=== PATIENT | female | born 1985 | race Two or more races ===

== ENCOUNTER 2018-11-27 08:39 | Emergency (ER) | payer MEDICAID ==
[~2018-11-27] VITALS: Ht 144.8 cm; Wt 68.0 kg
[2018-11-27 09:25] LABS: CLARITY URINE CLOUDY (CLEAR); COLOR URINE YELLOW (YELLOW); KETONES URINE NEGATIVE (NEGATIVE); LEUKOCYTE ESTERASE URINE 2+ (NEGATIVE); NITRITE URINE NEGATIVE (NEGATIVE); OCCULT BLOOD URINE NEGATIVE (NEGATIVE); PH URINE 6.5 (4.5-8.0); PROTEIN URINE TRACE (NEGATIVE); SPECIFIC GRAVITY URINE 1.016 (1.005-1.030); UROBILINOGEN URINE 0.2 E.U./dL (0.2-1.0)
[2018-11-27 10:09] LABS: BASOPHILS % 0.2 % (0.0-2.0); EOSINOPHILS % 1.8 % (0.0-5.0); HEMATOCRIT. 33.4 % (36.0-48.0); HEMOGLOBIN. 11.5 g/dL (12.0-16.0); LYMPHOCYTES % 15.8 % (20.0-50.0); MEAN CORPUSCULAR HEMOGLOBIN 30.6 pg (28.0-32.0); MEAN CORPUSCULAR VOLUME 89.3 fL (81.0-99.0); MEAN PLATELET VOLUME 9.2 fl (7.4-10.4); MONOCYTES % 4.8 % (2.0-8.0); NEUTROPHILS % 77.4 % (40.0-76.0); PLATELET 272 x1000/uL (130-400); RED BLOOD CELL COUNT 3.74 mill/uL (4.2-5.4); RED CELL DISTRIBUTION WIDTH 13.6 % (11.6-14.6)
[2018-11-27 10:20] LABS: CHLORIDE 107 mEq/L (98-107)
[2018-11-27 11:11] LABS: B-HCG QUANTITATIVE 23941 mIU/mL (<3)
[2018-11-27] MEDS ORDERED: ACETAMINOPHEN 325MG TABLET PO ONE (11:30)
[2018-11-27 11:44] VITALS: BP 125/85
== END 2018-11-27 11:49 | disposition home or self-care (01) ==
LOC: ER 08:44
DX: O23.12 Infections of bladder in pregnancy, second trimester (principal); I10 Essential (primary) hypertension; Z3A.18 18 weeks gestation of pregnancy
CPT/HCPCS: 36415; 76805; 80048; 81003; 81025; 84702; 99284

== ENCOUNTER 2018-12-12 20:59 | Observation (INO) | payer MEDICAID ==
[~2018-12-12] VITALS: Ht 144.8 cm; Wt 68.0 kg
[2018-12-12] MEDS ORDERED: DEXT 5%/LACTATED RINGERS 1,000 ML IV STA (21:55)
[2018-12-12 22:23] LABS: CLARITY URINE CLEAR (CLEAR); COLOR URINE YELLOW (YELLOW); KETONES URINE NEGATIVE (NEGATIVE); LEUKOCYTE ESTERASE URINE 1+ (NEGATIVE); NITRITE URINE NEGATIVE (NEGATIVE); OCCULT BLOOD URINE 3+ (NEGATIVE); PROTEIN URINE NEGATIVE (NEGATIVE); SPECIFIC GRAVITY URINE 1.011 (1.005-1.030)
[2018-12-12 22:37] LABS: BASOPHILS % 0.2 % (0.0-2.0); EOSINOPHILS % 1.6 % (0.0-5.0); HEMATOCRIT. 27.7 % (36.0-48.0); HEMOGLOBIN. 9.7 g/dL (12.0-16.0); MEAN CORPUSCULAR HEMOGLOBIN 31.3 pg (28.0-32.0); MEAN CORPUSCULAR VOLUME 88.9 fL (81.0-99.0); MONOCYTES % 10.2 % (2.0-8.0); PLATELET 207 x1000/uL (130-400); RED BLOOD CELL COUNT 3.11 mill/uL (4.2-5.4); RED CELL DISTRIBUTION WIDTH 13.7 % (11.6-14.6)
[2018-12-12 22:44] LABS: *BENZODIAZEPINES SCREEN URINE NEGATIVE (NEGATIVE); *COCAINE SCREEN URINE NEGATIVE (NEGATIVE)
[2018-12-12 22:45] LABS: *BARBITURATES SCREEN URINE NEGATIVE (NEGATIVE); CANNABINOID URINE SCREEN NEGATIVE (NEGATIVE); METHADONE URINE SCREEN NEGATIVE (NEGATIVE); OPIATES URINE SCREEN NEGATIVE (NEGATIVE); PHENCYCLIDINE URINE SCREEN NEGATIVE (NEGATIVE)
[2018-12-12 22:46] LABS: *AMPHETAMINES SCREEN URINE NEGATIVE (NEGATIVE)
[2018-12-13] MEDS ORDERED: CEFAZOLIN 2,000 MG in DEXT 5% WATER 100 ML IV SCH ×2
[2018-12-13] MEDS ORDERED: PNV1TABL50 MT (01:15)
== END 2018-12-13 01:20 | disposition home or self-care (01) ==
LOC: 8 EST LDRP 20:59
PROVIDERS: ADMIT Obstetrics & Gynecology; ATTEND Obstetrics & Gynecology
DX: O26.852 Spotting complicating pregnancy, second trimester (principal); Z3A.20 20 weeks gestation of pregnancy
CPT/HCPCS: 36415; 76805; 80305; 81003; 85025; 96365; 99281; G0378; J0690; J7060; 96360; 96361

== ENCOUNTER 2018-12-26 19:13 | Observation (INO) | payer MEDICAID ==
[~2018-12-26] VITALS: Ht 144.8 cm; Wt 68.0 kg
[~2018-12-26 19:13] MED LIST: PNV1TABL50 MT
[2018-12-26 21:02] LABS: CLARITY URINE CLEAR (CLEAR); COLOR URINE YELLOW (YELLOW); KETONES URINE NEGATIVE (NEGATIVE); LEUKOCYTE ESTERASE URINE 2+ (NEGATIVE); NITRITE URINE NEGATIVE (NEGATIVE); OCCULT BLOOD URINE TRACE (NEGATIVE); PROTEIN URINE NEGATIVE (NEGATIVE); SPECIFIC GRAVITY URINE 1.004 (1.005-1.030)
[2018-12-26] MEDS ORDERED: LACTATED RINGERS 1,000 ML IV ONE (21:45)
[2018-12-26] MEDS ORDERED: CEFAZOLIN 2,000 MG in DEXT 5% WATER 100 ML IV SCH (21:45)
[2018-12-26] MEDS ORDERED: ACETAMINOPHEN 500MG TABLET PO SCH (23:30)
== END 2018-12-26 23:10 | disposition home or self-care (01) ==
LOC: 8 EST LDRP 19:13
PROVIDERS: ADMIT Obstetrics & Gynecology; ATTEND Obstetrics & Gynecology
DX: O26.892 Other specified pregnancy related conditions, second trimester (principal); R10.30 Lower abdominal pain, unspecified; M54.9 Dorsalgia, unspecified; R11.2 Nausea with vomiting, unspecified; Z3A.22 22 weeks gestation of pregnancy
CPT/HCPCS: 81003; 96365; 99281; G0378; J0690; J7060; 96360

== ENCOUNTER 2019-03-16 04:03 | Observation (INO) | payer MEDICAID ==
[~2019-03-16] VITALS: Ht 144.8 cm; Wt 69.4 kg
== END 2019-03-16 05:15 | disposition home or self-care (01) ==
LOC: 8 EST LDRP 04:03
PROVIDERS: ADMIT Obstetrics & Gynecology; ATTEND Obstetrics & Gynecology
DX: O36.8130 Decreased fetal movements, third trimester, not applicable or unspecified (principal); Z3A.35 35 weeks gestation of pregnancy
CPT/HCPCS: G0378

== ENCOUNTER 2019-03-16 15:20 | Observation (INO) | payer MEDICAID ==
[~2019-03-16] VITALS: Ht 144.8 cm; Wt 68.9 kg
[2019-03-16 16:07] LABS: CLARITY URINE CLEAR (CLEAR); COLOR URINE YELLOW (YELLOW); KETONES URINE NEGATIVE (NEGATIVE); LEUKOCYTE ESTERASE URINE 1+ (NEGATIVE); NITRITE URINE NEGATIVE (NEGATIVE); OCCULT BLOOD URINE NEGATIVE (NEGATIVE); PROTEIN URINE 1+ (NEGATIVE); SPECIFIC GRAVITY URINE 1.007 (1.005-1.030); UROBILINOGEN URINE 0.2 E.U./dL (0.2-1.0)
[2019-03-16] MEDS ORDERED: ACETAMINOPHEN 500MG TABLET PO NR (16:15)
[2019-03-16] MEDS ORDERED: LACTATED RINGERS 1,000 ML IV SCH (16:30)
[2019-03-16] MEDS ORDERED: CEFAZOLIN 2,000 MG in DEXT 5% WATER 100 ML IV NR (17:00)
== END 2019-03-16 17:10 | disposition home or self-care (01) ==
LOC: 8 EST LDRP 15:20
PROVIDERS: ADMIT Obstetrics & Gynecology; ATTEND Obstetrics & Gynecology
DX: O62.9 Abnormality of forces of labor, unspecified (principal); O26.893 Other specified pregnancy related conditions, third trimester; R10.9 Unspecified abdominal pain; M54.9 Dorsalgia, unspecified; R30.9 Painful micturition, unspecified; Z3A.35 35 weeks gestation of pregnancy
CPT/HCPCS: 81003; 96365; G0378; J0690; J7060; J7120

== ENCOUNTER 2019-03-18 12:29 | Inpatient (IN) | payer MEDICAID ==
[~2019-03-18] VITALS: Ht 144.8 cm; Wt 68.9 kg
[2019-03-18] MEDS ORDERED: ATEN100T PO (13:22)
[2019-03-18] MEDS ORDERED: LACTATED RINGERS 1,000 ML IV SCH (13:22)
[2019-03-18] MEDS ORDERED: LIDOCAINE HCL 1% 20ML VIAL (Pyxis) INJ INFIL PRN (13:30)
[2019-03-18] MEDS ORDERED: PENICILLIN G POTASSIUM 5 MMU in DEXT 5% WATER 100 ML IV NR (13:30)
[2019-03-18] MEDS ORDERED: CARBOPROST TROMETHAMINE 250 MCG/ML AMPUL IM PRN (13:30)
[2019-03-18] MEDS ORDERED: DEXT 5%/LR + PITOCIN 20UNITS/L 1,000 ML IV PRN (13:30)
[2019-03-18] MEDS ORDERED: NALOXONE HCL 0.4 MG/ML 1ML VIAL IM PRN (13:30)
[2019-03-18] MEDS ORDERED: MISOPROSTOL 100MCG TABLET VG PRN (13:30)
[2019-03-18 14:53] LABS: CLARITY URINE CLEAR (CLEAR); COLOR URINE YELLOW (YELLOW); KETONES URINE NEGATIVE (NEGATIVE); LEUKOCYTE ESTERASE URINE 1+ (NEGATIVE); NITRITE URINE NEGATIVE (NEGATIVE); OCCULT BLOOD URINE 2+ (NEGATIVE); PH URINE 6.5 (4.5-8.0); PROTEIN URINE 1+ (NEGATIVE); SPECIFIC GRAVITY URINE 1.011 (1.005-1.030); UROBILINOGEN URINE 0.2 E.U./dL (0.2-1.0)
[2019-03-18 14:54] LABS: BASOPHILS % 0.4 % (0.0-2.0); EOSINOPHILS % 0.9 % (0.0-5.0); HEMATOCRIT. 32.8 % (36.0-48.0); LYMPHOCYTES % 19.1 % (20.0-50.0); MEAN CORPUSCULAR HEMOGLOBIN 28.5 pg (28.0-32.0); MEAN CORPUSCULAR VOLUME 85.4 fL (81.0-99.0); MEAN PLATELET VOLUME 10.5 fl (7.4-10.4); MONOCYTES % 6.5 % (2.0-8.0); NEUTROPHILS % 73.1 % (40.0-76.0); PLATELET 255 x1000/uL (130-400); RED BLOOD CELL COUNT 3.85 mill/uL (4.2-5.4); RED CELL DISTRIBUTION WIDTH 13.5 % (11.6-14.6)
[2019-03-18 14:55] LABS: CHLORIDE 111 mEq/L (98-107)
[2019-03-18] MEDS ORDERED: HYDRALAZINE 20MG/ML VIAL IV PRN (15:00)
[2019-03-18] MEDS ORDERED: LABETALOL HCL 5MG/ML VIAL 20ML IV PRN ×2 (15:00)
[2019-03-18] MEDS ORDERED: MAGNESIUM 4 G PREMIX 100 ML IV NR (15:00)
[2019-03-18] MEDS ORDERED: ACETAMINOPHEN 500MG TABLET PO PRN (15:15)
[2019-03-18 15:32] LABS: *AMPHETAMINES SCREEN URINE NEGATIVE (NEGATIVE); *BARBITURATES SCREEN URINE NEGATIVE (NEGATIVE); *BENZODIAZEPINES SCREEN URINE NEGATIVE (NEGATIVE); CANNABINOID URINE SCREEN NEGATIVE (NEGATIVE); METHADONE URINE SCREEN NEGATIVE (NEGATIVE); OPIATES URINE SCREEN NEGATIVE (NEGATIVE); PHENCYCLIDINE URINE SCREEN NEGATIVE (NEGATIVE)
[2019-03-18 15:33] LABS: *COCAINE SCREEN URINE NEGATIVE (NEGATIVE)
[2019-03-18] MEDS: MAGNESIUM SULFATE 20 GM in DEXT 5% WATER 460 ML IV SCH (15:46)
[2019-03-18 16:18] LABS: HEPATITIS B SURFACE ANTIGEN NEGATIVE
[2019-03-18] MEDS: BUTORPHANOL TARTRATE 2 MG/ML VIAL IV PRN ×2 (16:23→23:47)
[2019-03-18 16:48] LABS: INR 0.9; PARTIAL THROMBOPLASTIN TIME 21.9 sec (23.4-31.0); PROTHROMBIN TIME 9.2 sec (9.6-11.0)
[2019-03-18] MEDS: DEXT 5%/LACTATED RINGERS 1,000 ML IV SCH (17:58)
[2019-03-18] MEDS: LABETALOL HCL 200MG TABLET PO SCH (19:32)
[2019-03-18] MEDS: PENICILLIN G POTASSIUM 2.5 MMU in DEXTROSE 5% WATER 50 ML IV SCH (21:46)
[2019-03-19] MEDS: PENICILLIN G POTASSIUM 2.5 MMU in DEXTROSE 5% WATER 50 ML IV SCH ×6 (04:11→20:07)
[2019-03-19] MEDS: LABETALOL HCL 200MG TABLET PO SCH ×3 (04:12→20:06)
[2019-03-19] MEDS: MAGNESIUM SULFATE 20 GM in DEXT 5% WATER 460 ML IV SCH (04:34)
[2019-03-19] MEDS ORDERED: LACTATED RINGERS 1,000 ML IV SCH (10:00)
[2019-03-19] MEDS ORDERED: ACETAMINOPHEN 500MG TABLET PO NR (16:00)
[2019-03-19] MEDS ORDERED: BUTORPHANOL TARTRATE 2 MG/ML VIAL IM PRN (17:15)
[2019-03-19] MEDS ORDERED: LIDOCAINE HCL 1% 20ML VIAL (Pyxis) INJ INFIL NR (19:30)
[2019-03-19] MEDS ORDERED: MAGNESIUM 20 G PREMIX (L & D) 500 ML IV SCH ×2 (21:07→21:49)
[2019-03-19] MEDS ORDERED: DEXT 5%/LR + PITOCIN 20UNITS/L 1,000 ML IV SCH (21:07)
[2019-03-19] MEDS ORDERED: GLYCERIN/WITCH HAZEL LEAF MEDICATED PAD TOP PRN (21:15)
[2019-03-19] MEDS ORDERED: BISACODYL 10MG SUPP PR PRN (21:15)
[2019-03-19] MEDS ORDERED: BENZOCAINE/LANOLIN/ALOE VERA SPRAY TOP PRN (21:15)
[2019-03-19] MEDS ORDERED: ACETAMINOPHEN WITH CODEINE 300/30MG TABLET PO PRN ×2 (21:15)
[2019-03-19] MEDS ORDERED: LANOLIN OINT 7GM TUBE TOP PRN (21:15)
[2019-03-19] MEDS ORDERED: HEMORRHOIDAL SUPP PR PRN (21:15)
[2019-03-19] MEDS ORDERED: TRANEXAMIC ACID 1,000 MG/10 ML IV ONE (21:30)
[2019-03-19] MEDS ORDERED: MISOPROSTOL 200MCG TABLET ONE ×2 (21:31→21:35)
[2019-03-19] MEDS ORDERED: MISOPROSTOL 200MCG TABLET PO ONE (21:45)
[2019-03-19] MEDS ORDERED: CARBOPROST TROMETHAMINE 250 MCG/ML AMPUL IM ONE (21:45)
[2019-03-19] MEDS: CARBOPROST TROMETHAMINE 250 MCG/ML AMPUL IM SCH (21:45)
[2019-03-19] MEDS ORDERED: MISOPROSTOL 200MCG TABLET RC ONE (21:45)
[2019-03-19 23:20] VITALS: BP 124/74
[2019-03-19 23:50] VITALS: BP 133/86
[2019-03-20] VITALS (10 sets, daily range): BP systolic 106–125; BP diastolic 64–87
[2019-03-20] MEDS: IBUPROFEN 800MG TABLET PO PRN ×2 (00:56→17:36)
[2019-03-20] MEDS ORDERED: MISOPROSTOL 200MCG TABLET RC SCH (01:00)
[2019-03-20] MEDS: CARBOPROST TROMETHAMINE 250 MCG/ML AMPUL IM SCH (01:33)
[2019-03-20] MEDS ORDERED: MORPHINE SULFATE 4 MG/ML CPJ (NOT FOR IM USE) IV PRN ×3 (01:45→14:30)
[2019-03-20] MEDS ORDERED: ONDANSETRON HCL 4MG/2ML INJ IV PRN ×2 (01:45→14:30)
[2019-03-20 02:18] LABS: HEMATOCRIT. 28.9 % (36.0-48.0); HEMOGLOBIN. 9.4 g/dL (12.0-16.0); MEAN CORPUSCULAR HEMOGLOBIN 27.9 pg (28.0-32.0); MEAN CORPUSCULAR VOLUME 85.3 fL (81.0-99.0); MEAN PLATELET VOLUME 9.7 fl (7.4-10.4); PLATELET 200 x1000/uL (130-400); RED BLOOD CELL COUNT 3.39 mill/uL (4.2-5.4); RED CELL DISTRIBUTION WIDTH 13.7 % (11.6-14.6)
[2019-03-20] MEDS: LABETALOL HCL 200MG TABLET PO SCH ×4 (06:00→17:00)
[2019-03-20 07:25] LABS: PLATELET ESTIMATE NORMAL
[2019-03-20] MEDS: FERROUS SULFATE 325MG TABLET PO SCH ×3 (09:00→17:36)
[2019-03-20] MEDS: MAGNESIUM/ALUMINUM HYDROXIDE/SIMETHICONE 30ML UDC PO SCH ×4 (09:00→20:18)
[2019-03-20] MEDS: PRENATAL VIT/FE FUMARATE/FA TABLET PO SCH ×2 (09:00→17:36)
[2019-03-20] MEDS: SIMETHICONE 80MG TABLET CHEW PO SCH ×4 (09:00→20:18)
[2019-03-20] MEDS ORDERED: MIDAZOLAM HCL 2 MG/2 ML VIAL ONE (13:13)
[2019-03-20] MEDS ORDERED: ONDANSETRON HCL 4MG/2ML INJ ONE (13:13)
[2019-03-20] MEDS ORDERED: PROPOFOL 200MG/20ML VIAL IV ONE (13:13)
[2019-03-20] MEDS ORDERED: KETOROLAC 60MG/2ML VIAL IM ONE (13:13)
[2019-03-20] MEDS ORDERED: CEFAZOLIN SODIUM 1000MG/VIAL ONE (13:13)
[2019-03-20] MEDS ORDERED: FENTANYL CITRATE/PF 50MCG/ML 2ML VIAL ONE (13:13)
[2019-03-20] MEDS ORDERED: LIDOCAINE HCL/PF 1% 10 MG/ML 5ML VIAL ONE (13:13)
[2019-03-20] MEDS ORDERED: DEXAMETHASONE 10 MG/ML VIAL IV PRN (14:30)
[2019-03-20] MEDS ORDERED: DIPHENHYDRAMINE 50MG/ML VIAL IV PRN (14:30)
[2019-03-20] MEDS ORDERED: FENTANYL CITRATE/PF 50MCG/ML 2ML VIAL IV PRN ×3 (14:30)
[2019-03-20] MEDS ORDERED: KETOROLAC 30MG/ML VIAL IV PRN (20:00)
[2019-03-20] MEDS ORDERED: DOCUSATE SODIUM 100MG CAPSULE PO SCH (21:00)
[2019-03-21] VITALS: BP 108/62
[2019-03-21] MEDS ORDERED: IBUP-2030 PO (02:55)
[2019-03-21] MEDS: LABETALOL HCL 200MG TABLET PO SCH (06:00)
[2019-03-21] MEDS: FERROUS SULFATE 325MG TABLET PO SCH (08:58)
[2019-03-21] MEDS: SIMETHICONE 80MG TABLET CHEW PO SCH (08:58)
[2019-03-21] MEDS: PRENATAL VIT/FE FUMARATE/FA TABLET PO SCH (08:59)
[2019-03-21 09:32] VITALS: BP 112/74
[2019-03-21 10:06] VITALS: BP 112/74
== END 2019-03-21 11:15 | disposition home or self-care (01) | DRG 541 ==
LOC: 8 EST LDRP 12:29 → 8 EST A/PP 03-19 23:00
PROVIDERS: ADMIT Obstetrics & Gynecology; ATTEND Obstetrics & Gynecology
PROC: 10E0XZZ Delivery of Products of Conception, External Approach (ICD-10-PCS; principal; 2019-03-19)
PROC: 0UB70ZZ Excision of Bilateral Fallopian Tubes, Open Approach (ICD-10-PCS; 2019-03-20)
DX: O13.4 Gestational [pregnancy-induced] hypertension without significant proteinuria, complicating childbirth (principal); O60.14X0 Preterm labor third trimester with preterm delivery third trimester, not applicable or unspecified; D62 Acute posthemorrhagic anemia; O99.113 Other diseases of the blood and blood-forming organs and certain disorders involving the immune mechanism complicating pregnancy, third trimester; O99.12 Other diseases of the blood and blood-forming organs and certain disorders involving the immune mechanism complicating childbirth; D72.829 Elevated white blood cell count, unspecified; O99.02 Anemia complicating childbirth; Z30.2 Encounter for sterilization; Z3A.35 35 weeks gestation of pregnancy; Z37.0 Single live birth
CPT/HCPCS: 36415; 76805; 76818; 80305; 81003; 83735; 84550; 85384; 86592; 86703; 86762; 86850; 86900; 87340; 88302; 88307; J0595; J0690; J1885; J2250; J2270; J2405; J2540; J2590; J2704; J3010; J3475; J3490; J7060; J7120; A4315

== ENCOUNTER 2020-09-14 12:17 | Emergency (ER) | payer MEDICAID ==
[~2020-09-14] VITALS: Ht 165.1 cm; Wt 65.0 kg
[~2020-09-14 12:17] MED LIST changes: +ATEN100T PO; +IBUP-2030 PO
[2020-09-14 14:51] LABS: CLARITY URINE CLOUDY (CLEAR); COLOR URINE YELLOW (YELLOW); KETONES URINE NEGATIVE (NEGATIVE); LEUKOCYTE ESTERASE URINE 3+ (NEGATIVE); NITRITE URINE POSITIVE (NEGATIVE); OCCULT BLOOD URINE TRACE (NEGATIVE); PROTEIN URINE TRACE (NEGATIVE); SPECIFIC GRAVITY URINE 1.013 (1.005-1.030); UROBILINOGEN URINE 0.2 E.U./dL (0.2-1.0)
[2020-09-14] MEDS ORDERED: CEFTRIAXONE SODIUM 1 G/VIAL IM NR (15:30)
[2020-09-14] MEDS ORDERED: LIDOCAINE HCL 1% 20ML VIAL (Pyxis) INJ INFIL NR (15:30)
[2020-09-14] MEDS ORDERED: NITR-87 MT (15:35)
[2020-09-14] MEDS ORDERED: T3 PO (15:35)
[2020-09-14 15:38] VITALS: BP 119/80
[2020-09-14] MEDS ORDERED: ACETAMINOPHEN WITH CODEINE 300/30MG TABLET PO ONE (15:45)
== END 2020-09-14 14:30 | disposition home or self-care (01) ==
LOC: ER 12:17
DX: M54.2 Cervicalgia (principal); Z20.822 Contact with and (suspected) exposure to COVID-19
CPT/HCPCS: 71045; 81003; 81025; 87077; 87086; 87186; 87426; 96372; 99284; J0696

== ENCOUNTER 2021-11-11 21:42 | Emergency (ER) | payer MEDICAID ==
[~2021-11-11] VITALS: Ht 157.5 cm; Wt 58.2 kg
[~2021-11-11 21:42] MED LIST changes: +NITR-87 MT; +T3 PO
[2021-11-11 23:56] LABS: CLARITY URINE CLEAR (CLEAR); COLOR URINE YELLOW (YELLOW); KETONES URINE NEGATIVE (NEGATIVE); LEUKOCYTE ESTERASE URINE 3+ (NEGATIVE); NITRITE URINE NEGATIVE (NEGATIVE); OCCULT BLOOD URINE TRACE (NEGATIVE); PROTEIN URINE NEGATIVE (NEGATIVE); SPECIFIC GRAVITY URINE 1.005 (1.005-1.030); UROBILINOGEN URINE 0.2 E.U./dL (0.2-1.0)
[2021-11-11 23:57] LABS: BASOPHILS % 0.3 % (0.0-2.0); EOSINOPHILS % 2.3 % (0.0-5.0); HEMATOCRIT. 36.2 % (36.0-48.0); HEMOGLOBIN. 12.1 g/dL (12.0-16.0); LYMPHOCYTES % 32.8 % (20.0-50.0); MEAN CORPUSCULAR HEMOGLOBIN 29.1 pg (28.0-32.0); MEAN CORPUSCULAR VOLUME 86.9 fL (81.0-99.0); MEAN PLATELET VOLUME 8.5 fl (7.4-10.4); NEUTROPHILS % 55.6 % (40.0-76.0); PLATELET 283 x1000/uL (130-400); RED BLOOD CELL COUNT 4.16 mill/uL (4.2-5.4); RED CELL DISTRIBUTION WIDTH 13.5 % (11.6-14.6)
[2021-11-12 00:02] LABS: CHLORIDE 107 mEq/L (98-107)
[2021-11-12 00:17] LABS: HCG SCREEN NEGATIVE
[2021-11-12] MEDS ORDERED: LIDOCAINE HCL 1% 20ML VIAL (Pyxis) INJ INFIL ONE (02:30)
[2021-11-12] MEDS ORDERED: CEFTRIAXONE SODIUM 1 G/VIAL IM ONE (02:30)
[2021-11-12] MEDS ORDERED: CEPH250C2 MT (02:34)
[2021-11-12] MEDS ORDERED: ACYC200C31 MT (02:34)
[2021-11-12 03:10] VITALS: BP 120/60
== END 2021-11-12 03:12 | disposition home or self-care (01) ==
LOC: ER 21:42
DX: N39.0 Urinary tract infection, site not specified (principal); M54.50 Low back pain, unspecified; R50.9 Fever, unspecified
CPT/HCPCS: 36415; 80053; 81003; 81025; 83690; 84703; 85025; 86694; 87210; 96372; 99283; J0696; J3490

== ENCOUNTER 2022-09-21 19:40 | Emergency (ER) | payer MEDICAID ==
[~2022-09-21] VITALS: Ht 154.9 cm; Wt 58.0 kg
[~2022-09-21 19:40] MED LIST changes: +ACYC200C31 MT; +CEPH250C2 MT
[2022-09-21 23:28] LABS: CHLORIDE 111 mEq/L (98-107)
[2022-09-21 23:32] LABS: BASOPHILS % 0.2 % (0.0-2.0); EOSINOPHILS % 3.1 % (0.0-5.0); HEMATOCRIT. 36.1 % (36.0-48.0); HEMOGLOBIN. 12.2 g/dL (12.0-16.0); LYMPHOCYTES % 26.6 % (20.0-50.0); MEAN CORPUSCULAR HEMOGLOBIN 29.5 pg (28.0-32.0); MEAN CORPUSCULAR VOLUME 87.5 fL (81.0-99.0); MEAN PLATELET VOLUME 8.6 fl (7.4-10.4); MONOCYTES % 7.7 % (2.0-8.0); NEUTROPHILS % 62.4 % (40.0-76.0); PLATELET 321 x1000/uL (130-400); RED BLOOD CELL COUNT 4.13 mill/uL (4.2-5.4)
[2022-09-22] MEDS ORDERED: KETOROLAC 30MG/ML VIAL IM ONE (00:15)
[2022-09-22] MEDS ORDERED: METOCLOPRAMIDE HCL 10MG TABLET PO ONE (00:15)
[2022-09-22] MEDS ORDERED: KETOROLAC 30MG/ML VIAL IM NR (02:15)
[2022-09-22] MEDS ORDERED: METOCLOPRAMIDE HCL 10MG TABLET PO NR (02:15)
[2022-09-22 03:16] LABS: CLARITY URINE TURBID (CLEAR); COLOR URINE YELLOW (YELLOW); KETONES URINE NEGATIVE (NEGATIVE); LEUKOCYTE ESTERASE URINE 3+ (NEGATIVE); NITRITE URINE NEGATIVE (NEGATIVE); OCCULT BLOOD URINE 1+ (NEGATIVE); PH URINE 5.5 (4.5-8.0); PROTEIN URINE 1+ (NEGATIVE); SPECIFIC GRAVITY URINE 1.015 (1.005-1.030); UROBILINOGEN URINE 0.2 E.U./dL (0.2-1.0)
[2022-09-22] MEDS ORDERED: IBUP-2029 MT (03:30)
[2022-09-22] MEDS ORDERED: NITR-87 MT (03:31)
[2022-09-22 04:13] VITALS: BP 141/99
== END 2022-09-22 04:32 | disposition home or self-care (01) ==
LOC: ER 19:55
DX: I10 Essential (primary) hypertension (principal); N39.0 Urinary tract infection, site not specified; R51.9 Headache, unspecified
CPT/HCPCS: 36415; 80053; 81003; 81025; 85025; 87086; 96372; 99285; J1885; J8597; Z7610

== ENCOUNTER 2022-12-21 18:57 | Emergency (ER) | payer MEDICAID ==
[~2022-12-21] VITALS: Ht 160 cm; Wt 63.0 kg
[~2022-12-21 18:57] MED LIST changes: +IBUP-2029 MT
[2022-12-21 19:05] VITALS: O2SAT 98
[2022-12-21] MEDS ORDERED: ACETAMINOPHEN 325MG TABLET PO STA (19:08)
[2022-12-21 19:35] LABS: CLARITY URINE TURBID (CLEAR); COLOR URINE YELLOW (YELLOW); GLUCOSE URINE NEGATIVE (NEGATIVE); KETONES URINE NEGATIVE (NEGATIVE); LEUKOCYTE ESTERASE URINE 3+ (NEGATIVE); NITRITE URINE POSITIVE (NEGATIVE); OCCULT BLOOD URINE 3+ (NEGATIVE); PROTEIN URINE 2+ (NEGATIVE); SPECIFIC GRAVITY URINE 1.013 (1.005-1.030)
[2022-12-21 19:53] LABS: BACTERIA URINE 2+; SQUAMOUS EPITHELIAL CELL URINE 1+ /lpf (RARE/1+); WBC URINE TNTC /hpf (0-2)
[2022-12-21] MEDS ORDERED: PYR200 MT (20:12)
[2022-12-21] MEDS ORDERED: CEPH500C2 MT (20:12)
[2022-12-21] MEDS ORDERED: IBUP-2029 MT (20:12)
[2022-12-21 20:46] VITALS: BP 125/78; PULSE 87; RESP 20; TEMP 98.1
== END 2022-12-21 20:48 | disposition home or self-care (01) ==
LOC: ER 18:57
DX: N30.90 Cystitis, unspecified without hematuria (principal); I10 Essential (primary) hypertension; Z79.899 Other long term (current) drug therapy
CPT/HCPCS: 81003; 81025; 99283